=== PATIENT | male | born 1935 | race Native Hawaiian/Other Pacific Islander ===

== ENCOUNTER 2017-01-14 15:59 | Inpatient (IN) | payer OTHER, MEDICARE ==
[~2017-01-14] VITALS: Ht 167.6 cm; Wt 93.0 kg
[2017-01-14 16:00] VITALS: BP 175/103; TEMP 98
[2017-01-14] MEDS ORDERED: PACERONE200 MG OR (16:17)
[2017-01-14] MEDS ORDERED: TAMS0.4C PO (16:18)
[2017-01-14] MEDS ORDERED: TRAM50TA PO (16:18)
[2017-01-14] MEDS ORDERED: SIMV20TA2 PO (16:20)
[2017-01-14] MEDS ORDERED: CARV12.5 PO (16:21)
[2017-01-14] MEDS ORDERED: AMBIEN5 MG PO (16:24)
[2017-01-14] MEDS ORDERED: LISINOP/HCTZ1 TA2 PO (16:25)
[2017-01-14] MEDS ORDERED: DIGO0.2549 PO (16:27)
[2017-01-14] MEDS ORDERED: BUT/APAP/CA3 PO (16:28)
[2017-01-14] MEDS ORDERED: CLON0.1T16 PO (16:29)
[2017-01-14] MEDS ORDERED: ALPR0.2566 PO (16:29)
[2017-01-14] MEDS ORDERED: LEVO-T88 MCG PO (16:30)
[2017-01-14] MEDS ORDERED: NEXIUM40 M1 PO (16:31)
[2017-01-14 16:35] LABS: PLATELET COUNT 221 K/uL (142-355)
[2017-01-14 17:07] LABS: POTASSIUM 3.9 mmol/L (3.6-5.2)
[2017-01-14 17:30] VITALS: BP 151/85
[2017-01-14 18:15] VITALS: BP 166/93
[2017-01-14 19:00] VITALS: BP 159/95
[2017-01-14 20:00] VITALS: BP 177/107; TEMP 97.8
[2017-01-14 20:14] LABS: PARTIAL THROMBOPLASTIN TIME 26.1 SECONDS (24.5-33.6)
[2017-01-15] VITALS (7 sets, daily range): BP systolic 137–177; BP diastolic 83–107; TEMP 97.4–98.4; Ht 167.6 cm; Wt 93.0 kg
[2017-01-15 08:33] LABS: PLATELET COUNT 144 K/uL (142-355)
[2017-01-15 08:57] LABS: POTASSIUM 3.6 mmol/L (3.6-5.2); SODIUM 127 mmol/L (136-145)
[2017-01-16 00:20] VITALS: BP 166/96; TEMP 98.1
[2017-01-16 04:00] VITALS: BP 159/96; TEMP 97.6
[2017-01-16 08:00] VITALS: BP 170/97; TEMP 97.6
[2017-01-16 16:00] VITALS: BP 161/88; TEMP 97.5
[2017-01-16 20:00] VITALS: BP 159/97; BP 459/97; TEMP 97.4
[2017-01-17] VITALS: BP 135/76; TEMP 97.4
[2017-01-17 04:00] VITALS: BP 134/85; TEMP 97.7
[2017-01-17 08:00] VITALS: BP 145/86; TEMP 97.9
[2017-01-17 12:00] VITALS: BP 127/77; TEMP 98.3
[2017-01-17 16:00] VITALS: BP 133/83; TEMP 98
== END 2017-01-17 19:05 | disposition home or self-care (01) | DRG 103 ==
LOC: ED 15:59 → MED/SURG 18:46
PROVIDERS: Family Medicine; ADMIT Specialist
DX: R51 Headache (principal); R07.89 Other chest pain; I10 Essential (primary) hypertension; Z95.0 Presence of cardiac pacemaker; R53.1 Weakness; I49.8 Other specified cardiac arrhythmias; F03.90 Unspecified dementia, unspecified severity, without behavioral disturbance, psychotic disturbance, mood disturbance, and anxiety; F32.89 Other specified depressive episodes
CPT/HCPCS: 36415; 80053; 80162; 81000; 82550; 82553; 83735; 84100; 84484; 85027; 85610; 85730; 93005; 94760; 96365; 96366; 96375; 96376; 99284; J1170; J1720; J1885; J2175; J2270; J2405; J3360; J3411; J3475; J3490

== ENCOUNTER 2017-07-11 09:46 | Emergency (ER) | payer OTHER, MEDICARE ==
[~2017-07-11] VITALS: Ht 170.2 cm; Wt 93.4 kg
[~2017-07-11 09:46] MED LIST: ALPR0.2566 PO; AMBIEN5 MG PO; BUT/APAP/CA3 PO; CARV12.5 PO; CLON0.1T16 PO; DIGO0.2549 PO; LEVO-T88 MCG PO; LISINOP/HCTZ1 TA2 PO; NEXIUM40 M1 PO; PACERONE200 MG OR; SIMV20TA2 PO; TAMS0.4C PO; TRAM50TA PO
[2017-07-11] MEDS ORDERED: TAMO10TA PO (10:21)
[2017-07-11] MEDS ORDERED: HYDR10TA47 PO (10:23)
[2017-07-11] MEDS ORDERED: AMOXICILLIN250 M2 PO (10:23)
[2017-07-11] MEDS ORDERED: TOPAMAX OR (10:24)
[2017-07-11] MEDS ORDERED: LEVO0.1T6 PO (10:24)
[2017-07-11] MEDS ORDERED: CARV12.5 PO (10:25)
[2017-07-11] MEDS ORDERED: AMIODARONE HCL100 MG PO (10:25)
[2017-07-11 12:07] LABS: PLATELET COUNT 151 K/uL (142-355)
[2017-07-11 12:26] LABS: POTASSIUM 4.2 mmol/L (3.6-5.2); SODIUM 126 mmol/L (136-145)
[2017-07-11 12:38] VITALS: BP 103/50; TEMP 97.2
== END 2017-07-11 12:51 | disposition home or self-care (01) ==
LOC: ED 09:46
PROVIDERS: Emergency Medicine
DX: M79.1 Myalgia (principal); J44.9 Chronic obstructive pulmonary disease, unspecified; W17.89XA Other fall from one level to another, initial encounter; Y92.89 Other specified places as the place of occurrence of the external cause
CPT/HCPCS: 80053; 82550; 84484; 85027; 96372; 99283; J0696; J1100; J1885

== ENCOUNTER 2017-11-06 11:00 | Outpatient (CLI) | payer OTHER, MEDICARE ==
[~2017-11-06 11:00] MED LIST changes: +AMIODARONE HCL100 MG PO; +AMOXICILLIN250 M2 PO; +HYDR10TA47 PO; +LEVO0.1T6 PO; +TAMO10TA PO; +TOPAMAX OR
== END 2017-11-06 21:57 | disposition home or self-care (01) ==
LOC: US 11:00
DX: M79.605 Pain in left leg (principal)

== ENCOUNTER 2018-01-23 15:21 | Observation (INO) | payer OTHER, MEDICARE ==
[~2018-01-23] VITALS: Ht 167.6 cm; Wt 93.5 kg
[2018-01-23 16:16] VITALS: BP 142/87; TEMP 97.9; Ht 167.6 cm; Wt 93.5 kg
[2018-01-23 16:48] LABS: PLATELET COUNT 206 K/uL (142-355)
[2018-01-23 17:11] LABS: POTASSIUM 3.8 mmol/L (3.6-5.2); SODIUM 131 mmol/L (136-145)
[2018-01-23 20:00] VITALS: BP 134/91; TEMP 99.1
[2018-01-24] VITALS: BP 129/71; TEMP 97.9
[2018-01-24 04:07] VITALS: BP 132/82; TEMP 97.6
[2018-01-24 08:05] VITALS: BP 148/90; TEMP 97.6
[2018-01-24 09:17] LABS: PLATELET COUNT 196 K/uL (142-355)
[2018-01-24 12:03] VITALS: BP 133/86; TEMP 97.2
[2018-01-24 16:06] VITALS: BP 136/84; TEMP 97.6
[2018-01-24 20:23] VITALS: BP 129/74; TEMP 97.5
[2018-01-25] VITALS: BP 145/79; TEMP 97.7
[2018-01-25 04:00] VITALS: BP 142/87; TEMP 97.8
[2018-01-25 08:06] VITALS: BP 142/85; TEMP 97.8
== END 2018-01-25 12:45 | disposition home or self-care (01) ==
LOC: MED/SURG 15:21
PROVIDERS: ADMIT Family Medicine
DX: I16.9 Hypertensive crisis, unspecified (principal); E86.0 Dehydration; R51 Headache; F01.50 Vascular dementia, unspecified severity, without behavioral disturbance, psychotic disturbance, mood disturbance, and anxiety
CPT/HCPCS: 80053; 80061; 81000; 82550; 83880; 84443; 84484; 85027; 85610; 85730; 87040; 93005; 99220; G0378; G0379

== ENCOUNTER 2018-02-20 11:45 | Outpatient (CLI) | payer OTHER, MEDICARE ==
[~2018-02-20] VITALS: Ht 160 cm; Wt 92.5 kg
== END 2018-02-20 19:19 | disposition home or self-care (01) ==
LOC: INF 11:45
DX: E87.1 Hypo-osmolality and hyponatremia (principal)
CPT/HCPCS: 96360; J2920

== ENCOUNTER 2018-02-21 12:25 | Observation (INO) | payer OTHER, MEDICARE ==
[~2018-02-21] VITALS: Ht 182.9 cm; Wt 92.7 kg
[2018-02-21 13:34] VITALS: BP 153/85; TEMP 97.7; Ht 182.9 cm; Wt 92.7 kg
[2018-02-21 14:21] LABS: PLATELET COUNT 190 K/uL (142-355)
[2018-02-21 14:45] LABS: POTASSIUM 3.6 mmol/L (3.6-5.2); SODIUM 131 mmol/L (136-145)
[2018-02-21 16:00] VITALS: BP 152/44; TEMP 98.2
[2018-02-21 20:00] VITALS: BP 173/103; TEMP 98.1
[2018-02-22] VITALS: BP 150/86; TEMP 97.8
[2018-02-22 03:41] VITALS: BP 176/105; TEMP 97.5
[2018-02-22 05:54] LABS: POTASSIUM 3.5 mmol/L (3.6-5.2)
[2018-02-22 06:25] LABS: PLATELET COUNT 162 K/uL (142-355)
[2018-02-22 07:57] VITALS: BP 153/90; TEMP 97.5
[2018-02-22 12:04] VITALS: BP 160/80; TEMP 97.7
== END 2018-02-22 15:30 | disposition home or self-care (01) ==
LOC: MED/SURG 12:25
PROVIDERS: ADMIT Family Medicine
DX: E87.1 Hypo-osmolality and hyponatremia (principal); R51 Headache; R53.1 Weakness; I10 Essential (primary) hypertension; R26.89 Other abnormalities of gait and mobility; R42 Dizziness and giddiness; Z79.899 Other long term (current) drug therapy; Z51.81 Encounter for therapeutic drug level monitoring
CPT/HCPCS: 36415; 80053; 82550; 83605; 83735; 83874; 83880; 84100; 84439; 84443; 84484; 85027; 85379; 85610; 85730; 87040; 93005; 96360; 96365; 96366; 99220; G0378; G0379; J2920; Q9963

== ENCOUNTER 2018-02-28 21:32 | Emergency (ER) | payer OTHER, MEDICARE ==
[~2018-02-28] VITALS: Ht 170.2 cm; Wt 92.5 kg
[2018-02-28 22:19] LABS: PLATELET COUNT 188 K/uL (142-355)
[2018-02-28 22:25] LABS: POTASSIUM 3.6 mmol/L (3.6-5.2)
[2018-03-01 00:40] VITALS: BP 1158/88; TEMP 98.7
== END 2018-03-01 00:42 | disposition home or self-care (01) ==
LOC: ED 21:32
DX: I10 Essential (primary) hypertension (principal); R51 Headache; I77.810 Thoracic aortic ectasia
CPT/HCPCS: 36415; 80053; 85027; 93005; 96374; 99284; J1885

== ENCOUNTER 2018-03-26 19:30 | Emergency (ER) | payer OTHER, MEDICARE ==
[~2018-03-26] VITALS: Ht 170.2 cm; Wt 94.3 kg
[2018-03-26 20:28] LABS: PLATELET COUNT 185 K/uL (142-355)
[2018-03-26 20:38] LABS: POTASSIUM 3.4 mmol/L (3.6-5.2)
[2018-03-26 21:35] VITALS: BP 142/84; TEMP 97.6
== END 2018-03-26 21:35 | disposition home or self-care (01) ==
LOC: ED 19:30
PROVIDERS: Emergency Medicine
DX: R51 Headache (principal)
CPT/HCPCS: 36415; 80053; 85027; 96372; 99283; J2175; J2405

== ENCOUNTER 2018-04-02 16:25 | Outpatient (CLI) | payer OTHER, MEDICARE ==
[2018-04-02 17:26] LABS: POTASSIUM 4.1 mmol/L (3.6-5.2)
== END 2018-04-02 18:54 | disposition home or self-care (01) ==
LOC: LAB 16:25
PROVIDERS: Family Medicine
DX: E87.1 Hypo-osmolality and hyponatremia (principal)
CPT/HCPCS: 80053

== ENCOUNTER 2019-04-08 15:14 | Outpatient (CLI) | payer OTHER, MEDICARE | END 2019-04-08 19:16 | disposition home or self-care (01) | LOC: RAD 15:14 | DX: S29.8XXA Other specified injuries of thorax, initial encounter (principal) ==

== ENCOUNTER 2019-05-11 18:23 | Outpatient (CLI) | payer OTHER, MEDICARE ==
[2019-05-11 19:15] LABS: PLATELET COUNT 192 K/uL (142-355)
[2019-05-11 19:33] LABS: POTASSIUM 3.7 mmol/L (3.6-5.2); SODIUM 134 mmol/L (136-145)
== END 2019-05-11 21:06 | disposition home or self-care (01) ==
LOC: LABW 18:23
PROVIDERS: Nurse Practitioner Family
DX: R07.89 Other chest pain (principal)
CPT/HCPCS: 36415; 80053; 82550; 83880; 84484; 85027; 85379

== ENCOUNTER 2019-11-12 14:19 | Outpatient (CLI) | payer OTHER, MEDICARE | END 2019-11-12 22:55 | disposition home or self-care (01) | LOC: LAB 14:19 | DX: R00.2 Palpitations (principal); I50.9 Heart failure, unspecified | CPT/HCPCS: 83880; 84484 ==

== ENCOUNTER 2020-01-16 10:41 | Outpatient (CLI) | payer OTHER, MEDICARE | END 2020-01-16 20:01 | disposition home or self-care (01) | LOC: CT 10:41 | DX: R51 Headache (principal); R11.0 Nausea ==